=== PATIENT | male | born 1945 | race Caucasian/White ===

== ENCOUNTER 2016-11-07 23:08 | Emergency (ER) | payer OTHER ==
--- NOTE | 2016-11-07 23:58 | ED ORDER SUMMARY ---
..... Patient: KY TINOCO JR OrderSheet Formerly [facility] VisitID: [id number] [place] [address] 71y, M Registration Date/Time: 11/07/2016 ORDER SHEET Weight: 113.3 kg (stated) Allergies: No Known Drug Allergy GENERAL ORDERS: UA-Culture if indicated Urgent (23:21 11/07/2016 Nic ARIAS) (Ack 23:22 JSanders R.N.) (Ack 23:22 AMcQuoid ER Tech1) (23:34 JSanders R.N.) Strauss Catheter (23:21 11/07/2016 Nic ARIAS) (Ack 23:22 JSanders R.N.) (Ack 23:22 AMcQuoid ER Tech1) (23:34 JSanders R.N.) - (d/c Strauss) (23:55 11/07/2016 Nic ARIAS) (0:06 HSoule) MEDICATION ORDERS: IV FLUIDS: ORDER SHEET NOTES: [Electronically signed by Svetlana Guerra MD (00:19 11/08/2016)] [Electronically signed by Darling West R.N. (01:56 11/08/2016)] [Electronically locked/signed by Darling West R.N. (01:56 11/08/2016)]
--- NOTE | 2016-11-07 23:58 | ED CLINICAL REPORT ---
Clinical Report - Physicians/[facility] [address] [place] [address] 11/07/2016 23:10 Patient: YK TINOCO JR Time Seen: 23:21. Arrived- By private vehicle. Historian- patient. HISTORY OF PRESENT ILLNESS Chief Complaint: URINARY RETENTION. This started today and is still present. The problem is described as moderate. No penile discharge, discomfort with urination, urinary frequency, genital lesion or testicular pain. No urgency of urination, flank pain, inguinal swelling or problem with the foreskin. The patient has been unable to void (since this afternoon). He has been voiding small amounts (intermittently). Sexual history is noncontributory. Similar symptoms previously: None. Recent medical care: Not recently seen/assessed. REVIEW OF SYSTEMS No fever, chills, flank pain, hematuria or abdominal pain. No vomiting, diarrhea, black stools, bloody stools or headache. No sore throat, blurred vision, chest pain, difficulty breathing or cough. No joint pain, skin rash or back pain. All systems otherwise negative, except as recorded above. PAST HISTORY Problems: Sleep Apnea. COPD - Chronic Obstructive Pulmonary Disease. Hypertension. Additional Surgeries: Knee Surgery. Shoulder Surgery. Sinus Surgery. Medications: Statin. Lisinopril Oral (Tablet 20 mg) 1 tablet, daily. Allergies: No Known Drug Allergy. SOCIAL HISTORY Smoker- current status unknown. Alcohol use. History of drug use: marijuana. ADDITIONAL NOTES The nursing notes have been reviewed. PHYSICAL EXAM Vital Signs: 11/07/2016 23:15 BP: 219/97. HR: 70. RR: 20. O2 saturation: 98%. Temp: 98.2 F. Pain level now: 1010. Have been reviewed. Appearance: Alert. Oriented X3. No acute distress. ENT: Normal external inspection. Neck: Neck supple. CVS: Heart sounds normal. Respiratory: No respiratory distress. Breath sounds normal. Abdomen: Soft and nontender. No organomegaly. (Strauss is in place.). : Normal genitalia. Strauss catheter returning normal appearing urine (1100 cc of yellow urine). Not cloudy or bloody. Skin: Skin warm and dry. Normal skin color. No rash. Normal skin turgor. Extremities: Bilateral mild pitting edema of the lower extremities involving both ankles. Extremities exhibit normal ROM. Neuro: Oriented X 3. No motor deficit. No sensory deficit. LABS, X-RAYS, AND EKG Laboratory Tests: UA-Culture if indicated: (CARLEY: 11/07/2016 23:30) ( MsgRcvd 11/07/2016 23:51) Final results Test Result Flag Units (Reference) URINE COLOR YELLOW URINE APPEARANCE CLEAR URINE GLUCOSE NEGATIVE (NEGATIVE) URINE BILIRUBIN NEGATIVE (NEGATIVE) URINE KETONE NEGATIVE (NEGATIVE) URINE SPECIFIC GRAVITY 1.015 (1.010-1.030) URINE PH 6.0 (5.0-8.0) URINE PROTEIN NEGATIVE (NEGATIVE) URINE UROBILINOGEN 0.2 EU/dL (0.2-1.0) URINE NITRITE NEGATIVE (NEGATIVE) URINE BLOOD 1+ (NEGATIVE) URINE LEUK ESTERASE NEGATIVE (NEGATIVE) URINE RBC 1-3 rbc/hpf (0-1) URINE WBC 0-1 wbc/hpf (0-1) URINE EPITHELIAL CELLS NONE SEEN EPI/hpf (0-5) URINE BACTERIA NONE SEEN (NONE SEEN) URINE COMMENT CULT NOT INDICATED RARE TRANSITIONAL EPITHELIAL CELLURINE CULTURES ARE SET-UP BASED ON THE FOLLOWING CRITERIA:POSITIVE NITRITEPOSITIVE LEUKOCYTE ESTERASEGREATER THAN 10 WHITE BLOOD CELLSMODERATE (2+) OR GREATER BACTERIA . Pulse Oximetry: 11/07/2016 23:15 O2 saturation: 98%. (FIO2 - room air). Interpretation: normal. PROGRESS AND PROCEDURES Course of Care: bladder scan demonstrated the patient had 840 cc of urine in his bladder. However when the Strauss catheter was placed 1100 cc of yellow urine was obtained by my observation. Patient was found to be feeling much better after placement of the Strauss catheter. Urinalysis was unremarkable, and I did discuss with the patient and his that most likely, based on the patient's symptoms, he has prostatic hypertrophy Patient is unaware of his doctor ever having discussed this with him; however he states he has had PSAs checked in the past and that they have all been low. I did discuss with the patient the option of leaving the catheter in for a couple of days with a leg bag and then having his primary care physician remove it, versus the option of having the catheter removed here in the ED and see if he is able to urinate normally at home. Patient opted for the latter. Patient and spouse counseled in person regarding the patient's stable condition, test results, diagnosis and need for follow-up. Concerns were addressed. Old medical records reviewed. Disposition: Discharged. Condition: stable and improved. CLINICAL IMPRESSION Urinary retention with enlarged prostate. INSTRUCTIONS Drink plenty of fluids. (Your urinalysis looks good. Based on your history and symptoms, it is likely that you have an enlarged prostate gland, which is causing outflow restriction from your bladder. Please see your doctor for a recheck of this and your PSA. If you have further problems with urinary retention, we can put a catheter in again, and leave it in for a couple of days, after which you can follow up with a urologist.). Warnings: Further evaluation is necessary. It is very important to follow up with a physician. GENERAL WARNINGS: Return or contact your physician immediately if your condition worsens or changes unexpectedly, if not improving as expected, or if other problems arise. Your Current Medications: CONTINUE TAKING THE FOLLOWING MEDICATIONS: Lisinopril Oral : Tablet 20 mg, 1 tablet daily. Statin*. Follow-up: Follow up with your doctor. Call for the next available appointment. Reason for referral: Follow up ER visit for urinary retention. Understanding of the discharge instructions verbalized by patient and family. (Electronically signed by Svetlana Guerra MD 11/08/2016 0:19)
--- NOTE | 2016-11-07 23:58 | ED NURSING NOTES ---
Clinical Report - Nurses [facility] [address] [place] [address] 11/07/2016 23:10 Patient: KY TINOCO JR TRIAGE Triage time 23:Nov 07 2016. Acuity: LEVEL 3. Chief Complaint: URINARY RETENTION. 23:21 11/07/16. SEPSIS SCREEN: Sepsis Screen. Negative (no infection suspected/documented). YUNG COMA SCORE: Yung Coma Scale: 15- eyes open spontaneously (4); best verbal response- oriented x 4 (5); best motor response- obeys commands (6). --23:21 Darling West R.N. 23:15 11/07/16. BP: 219/97 (large adult cuff) taken on the left arm. HR: 70. RR: 20. O2 saturation: 98% on room air. Temp: 98.2 F. Pain level now: 04/12. Additional comments: in bladder. --23:21 Darling West R.N. Weight: 113.3 kg stated. Height/Length: 71 inches Per Patient. BMI: 34.9. --23:19 Darling West R.N. Medications Lisinopril Oral (Tablet 20 mg) 1 tablet, daily. --23:16 Darling West R.N. Statin. --23:16 Darling West R.N. Allergies No Known Drug Allergy. --23:17 Darling West R.N. History Arrived by private vehicle. Historian: patient. Accompanied by family. This started just prior to arrival. Onset. (Hasnt urinated for a few hours). ( 842 in bladder). He has been unable to void. 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 SOCIAL HX: Smoker- current status unknown. Occasional alcohol use. History of occasional drug use: marijuana. No infectious disease exposure. ABUSE ASSESSMENT: No report of abuse. --23:21 Darling West R.N. PROBLEMS: Sleep Apnea. COPD - Chronic Obstructive Pulmonary Disease. Hypertension. --23:18 Darling West R.N. Urinary Retention [RuleOut]. --23:58 Svetlana Guerra MD The following entry was modified by Svetlana Guerra MD, 23:58 <<STRICKEN ENTRY-- Urinary Retention. --23:17 Darling West R.N. --END STRIKE>>. ADDITIONAL SURGERIES: Knee Surgery. Shoulder Surgery. Sinus Surgery. --23:18 Darling West R.N. Interventions ID band on patient. To treatment room. --23:21 Darling West R.N. PHYSICAL ASSESSMENT 23:21 11/07/16. Ambulatory to room. Patient gowned. GENERAL / NEURO / PSYCH: Alert. Oriented X 4. HEENT: Mucous membranes are pink. RESPIRATORY: Respirations not labored. Breath sounds within normal limits. CVS: Normal heart rate and rhythm. Capillary refill less than 2 seconds. GI / : Abdominal distention. Abdomen soft. Abdominal tenderness. Bowel sounds within normal limits. SKIN: Skin is warm. --23:21 Darling West R.N. NURSING PROGRESS NOTES 23:11/07/16. The plan of care for this patient has been created. Monitoring of patient in place. Patient gowned. Head of bed elevated. Reassurance given. Two patient identifiers checked. Call light placed in reach. Side rails up x 2. Bed placed in lowest position. Brakes of bed on. Patient ready for evaluation- chart flagged and ED physician notified. --23:22 Darling West R.N. 23:28 11/07/16. ( Patients at bedside). --23:28 Darling West R.N. 23:30 11/07/16. --23:30 Darling West R.N. 23:28 11/07/16. BP: 147/59 (regular adult cuff) taken on the left arm. HR: 58. RR: 18. O2 saturation: 100% on room air. Pain level now: 0/10. --23:30 Darling West R.N. 23:30. 16 fr coude catheter placed. Reason for indwelling catheter: retention. During procedure hand hygiene observed and sterile equipment and aseptic technique used. Return of greater than 1000 mL yellow-colored cloudy urine; attached to bedside drainage bag positioned below the bladder. He tolerated procedure well. --23:45 Manuel Hagen R.N. 23:55 11/07/16. ( Patient feeling much better, no longer sweating and no more pain noted.). --23:55 Darling West R.N. 23:54 11/07/16. BP: 128/110 (regular adult cuff) taken on the left arm. HR: 55. RR: 18. O2 saturation: 94% on room air. Pain level now: 0/10. --23:55 Darling West R.N. DISPOSITION / DISCHARGE 00:15 11/08/16. BP: 141/65 (regular adult cuff) taken on the left arm. HR: 60. RR: 18. O2 saturation: 94% on room air. Temp: 97.6 F (oral). Pain level now: 0/10. --00:17 Darling West R.N. late entry - 00:17 11/08/16. Departure time: 16Nov 08 2016. --01:55 Darling West R.N. 00:17 11/08/16. Condition at departure: improved. No learning barriers present. Discharge instructions provided and reviewed with the patient. Reviewed medication(s). Patient verbalized understanding. Written instructions provided in [place]. The patient was discharged by the physician. He was discharged home and accompanied by spouse. He left the Emergency Department ambulatory and via private vehicle. Spouse driving. --00:17 Darling West R.N. Locked/Released at 11/08/2016 1:56 by Darling West R.N.
--- NOTE | 2016-11-07 23:58 | ED ORDER SUMMARY ---
..... Patient: KY TINOCO JR OrderSheet [facility] VisitID: [id number] [place] [address] 71y, M Registration Date/Time: 11/07/2016 ORDER SHEET Weight: 113.3 kg (stated) Allergies: No Known Drug Allergy GENERAL ORDERS: UA-Culture if indicated Urgent (23:21 11/07/2016 Nic ARIAS) (Ack 23:22 JSanders R.N.) (Ack 23:22 AMcQuoid ER Tech1) (23:34 JSanders R.N.) Strauss Catheter (23:21 11/07/2016 Nic ARIAS) (Ack 23:22 JSanders R.N.) (Ack 23:22 AMcQuoid ER Tech1) (23:34 JSanders R.N.) - (d/c Strauss) (23:55 11/07/2016 Nic ARIAS) (0:06 HSoule) MEDICATION ORDERS: IV FLUIDS: ORDER SHEET NOTES: [Electronically signed by Svetlana Guerra MD (00:19 11/08/2016)] [Electronically signed by Darling West R.N. (01:56 11/08/2016)] [Electronically locked/signed by Darling West R.N. (01:56 11/08/2016)]
--- NOTE | 2016-11-07 23:58 | ED NURSING NOTES ---
Clinical Report - Nurses [facility] [address] [place] [address] 11/07/2016 23:10 Patient: KY TINOCO JR TRIAGE Triage time 23:Nov 07 2016. Acuity: LEVEL 3. Chief Complaint: URINARY RETENTION. 23:21 11/07/16. SEPSIS SCREEN: Sepsis Screen. Negative (no infection suspected/documented). YUNG COMA SCORE: Yung Coma Scale: 15- eyes open spontaneously (4); best verbal response- oriented x 4 (5); best motor response- obeys commands (6). --23:21 Darling West R.N. 23:15 11/07/16. BP: 219/97 (large adult cuff) taken on the left arm. HR: 70. RR: 20. O2 saturation: 98% on room air. Temp: 98.2 F. Pain level now: 04/12. Additional comments: in bladder. --23:21 Darling West R.N. Weight: 113.3 kg stated. Height/Length: 71 inches Per Patient. BMI: 34.9. --23:19 Darling West R.N. Medications Lisinopril Oral (Tablet 20 mg) 1 tablet, daily. --23:16 Darling West R.N. Statin. --23:16 Darling West R.N. Allergies No Known Drug Allergy. --23:17 Darling West R.N. History Arrived by private vehicle. Historian: patient. Accompanied by family. This started just prior to arrival. Onset. (Hasnt urinated for a few hours). ( 842 in bladder). He has been unable to void. 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 SOCIAL HX: Smoker- current status unknown. Occasional alcohol use. History of occasional drug use: marijuana. No infectious disease exposure. ABUSE ASSESSMENT: No report of abuse. --23:21 Darling West R.N. PROBLEMS: Sleep Apnea. COPD - Chronic Obstructive Pulmonary Disease. Hypertension. --23:18 Darling West R.N. Urinary Retention [RuleOut]. --23:58 Svetlana Guerra MD The following entry was modified by Svetlana Guerra MD, 23:58 <<STRICKEN ENTRY-- Urinary Retention. --23:17 Darling West R.N. --END STRIKE>>. ADDITIONAL SURGERIES: Knee Surgery. Shoulder Surgery. Sinus Surgery. --23:18 Darling West R.N. Interventions ID band on patient. To treatment room. --23:21 Darling West R.N. PHYSICAL ASSESSMENT 23:21 11/07/16. Ambulatory to room. Patient gowned. GENERAL / NEURO / PSYCH: Alert. Oriented X 4. HEENT: Mucous membranes are pink. RESPIRATORY: Respirations not labored. Breath sounds within normal limits. CVS: Normal heart rate and rhythm. Capillary refill less than 2 seconds. GI / : Abdominal distention. Abdomen soft. Abdominal tenderness. Bowel sounds within normal limits. SKIN: Skin is warm. --23:21 Darling West R.N. NURSING PROGRESS NOTES 23:11/07/16. The plan of care for this patient has been created. Monitoring of patient in place. Patient gowned. Head of bed elevated. Reassurance given. Two patient identifiers checked. Call light placed in reach. Side rails up x 2. Bed placed in lowest position. Brakes of bed on. Patient ready for evaluation- chart flagged and ED physician notified. --23:22 Darling West R.N. 23:28 11/07/16. ( Patients at bedside). --23:28 Darling West R.N. 23:30 11/07/16. --23:30 Darling West R.N. 23:28 11/07/16. BP: 147/59 (regular adult cuff) taken on the left arm. HR: 58. RR: 18. O2 saturation: 100% on room air. Pain level now: 0/10. --23:30 Darling West R.N. 23:30. 16 fr coude catheter placed. Reason for indwelling catheter: retention. During procedure hand hygiene observed and sterile equipment and aseptic technique used. Return of greater than 1000 mL yellow-colored cloudy urine; attached to bedside drainage bag positioned below the bladder. He tolerated procedure well. --23:45 Manuel Hagen R.N. 23:55 11/07/16. ( Patient feeling much better, no longer sweating and no more pain noted.). --23:55 Darling West R.N. 23:54 11/07/16. BP: 128/110 (regular adult cuff) taken on the left arm. HR: 55. RR: 18. O2 saturation: 94% on room air. Pain level now: 0/10. --23:55 Darling West R.N. DISPOSITION / DISCHARGE 00:15 11/08/16. BP: 141/65 (regular adult cuff) taken on the left arm. HR: 60. RR: 18. O2 saturation: 94% on room air. Temp: 97.6 F (oral). Pain level now: 0/10. --00:17 Darling West R.N. late entry - 00:17 11/08/16. Departure time: 16Nov 08 2016. --01:55 Darling West R.N. 00:17 11/08/16. Condition at departure: improved. No learning barriers present. Discharge instructions provided and reviewed with the patient. Reviewed medication(s). Patient verbalized understanding. Written instructions provided in South [place]ese. The patient was discharged by the physician. He was discharged home and accompanied by spouse. He left the Emergency Department ambulatory and via private vehicle. Spouse driving. --00:17 Darling West R.N. Locked/Released at 11/08/2016 1:56 by Darling West R.N.
--- NOTE | 2016-11-08 01:56 | ED MED RECONCILIATION SUMMARY ---
Patient: KY TINOCO Medication Reconciliation Report [facility] VisitID: [id number] [address] [place] [address] 71y, M Registration Date/Time: 11/07/2016 Weight: 113.3 kg Height/Length: 71 in. BMI: 34.9 ALLERGIES: No Known Drug Allergy The patient's Home Medications are listed below: CONTINUE TAKING THE FOLLOWING MEDICATIONS: Lisinopril Oral (20 mg) 1 tablet, daily Statin The source(s) of the original Home Medication information: Not obtained. The following Medications were given to the patient in the Emergency Department: None. The following Medications were prescribed to the patient: None.
--- NOTE | 2016-11-08 01:56 | ED DISCHARGE INSTRUCTIONS ---
Patient: KY TINOCO JR General Instructions [facility] VisitID: [id number] [place] [address] 71y, M Registration Date/Time: 11/07/2016 Urinary retention with enlarged prostate. INSTRUCTIONS Drink plenty of fluids. (Your urinalysis looks good. Based on your history and symptoms, it is likely that you have an enlarged prostate gland, which is causing outflow restriction from your bladder. Please see your doctor for a recheck of this and your PSA. If you have further problems with urinary retention, we can put a catheter in again, and leave it in for a couple of days, after which you can follow up with a urologist.). Warnings: Further evaluation is necessary. It is very important to follow up with a physician. GENERAL WARNINGS: Return or contact your physician immediately if your condition worsens or changes unexpectedly, if not improving as expected, or if other problems arise. Your Current Medications: CONTINUE TAKING THE FOLLOWING MEDICATIONS: Lisinopril Oral : Tablet 20 mg, 1 tablet daily. Statin*. Follow-up: Follow up with your doctor. Call for the next available appointment. Reason for referral: Follow up ER visit for urinary retention. Understanding of the discharge instructions verbalized by patient and family. ADDITIONAL INFORMATION Urinary Retention (Male) Urinary retention means that you are unable to pass urine, even though your bladder is full. The most common cause for this in males is a blockage of the bladder outlet by an enlarged prostate gland or a bladder infection. Certain medicines can also cause this problem. This condition is treated by insertion of a catheter into the bladder to drain the urine. This provides immediate relief. The catheter may need to remain in place for a few days to prevent a recurrence. The catheter has a balloon on the tip which was inflated after insertion. This prevents the catheter from falling out. Home Care: If an antibiotic was prescribed to treat a bladder infection, be sure to take it until finished, even if you are feeling better before it is all gone. If a catheter was left in place, it is important to keep bacteria from getting into the collection bag. Do not disconnect the catheter from the collection bag. Use a leg band to secure the drainage tube, so it does not pull on the catheter. Drain the collection bag when it becomes full using the drain spout at the bottom of the bag. Do not try to pull or remove your catheter. This will injure your urethra. It must be removed by a doctor or nurse. Follow Up with your doctor as advised. If a catheter was left in place, it can usually be removed within 3-7 days. Some conditions require that the catheter remains in longer. Follow up with your doctor to determine the right time for you. Get Prompt Medical Attention if any of the following occur: Fever of 100.4F (38C) or higher, or as directed by your healthcare provider Bladder or lower abdominal pain or fullness Abdominal swelling, nausea, vomiting or back pain Blood or urine leakage around the catheter Bloody urine coming from the catheter (if a new symptom) Weakness, dizziness or fainting Confusion or change in usual level of alertness If a catheter was left in place, return if: Catheter falls out Catheter stops draining for 6 hours You have been given the following additional information: Urinary Retention, Male (Electronically signed by Svetlana Guerra MD 11/08/2016 0:19)
--- NOTE | 2016-11-08 01:56 | ED MED RECONCILIATION SUMMARY ---
Patient: YK TINOCO Medication Reconciliation Report [facility] VisitID: [id number] [address] [place] [address] 71y, M Registration Date/Time: 11/07/2016 Weight: 113.3 kg Height/Length: 71 in. BMI: 34.9 ALLERGIES: No Known Drug Allergy The patient's Home Medications are listed below: CONTINUE TAKING THE FOLLOWING MEDICATIONS: Lisinopril Oral (20 mg) 1 tablet, daily Statin The source(s) of the original Home Medication information: Not obtained. The following Medications were given to the patient in the Emergency Department: None. The following Medications were prescribed to the patient: None.
--- NOTE | 2016-11-08 01:56 | ED MAR SUMMARY ---
..... Medication Administration Record [facility] [address], [place] [id number] Patient: KY TINOCO Visit ID: [id number] 71y, M Weight: 113.3 kg Height/Length: 71 in BMI: 34.9 ALLERGIES: No Known Drug Allergy
--- NOTE | 2016-11-08 01:56 | ED MAR SUMMARY ---
..... Medication Administration Record [facility] [address] [id number] Patient: KY TINOCO Visit ID: [id number] 71y, M Weight: 113.3 kg Height/Length: 71 in BMI: 34.9 ALLERGIES: No Known Drug Allergy
== END 2016-11-08 00:21 | disposition home or self-care (01) ==
LOC: ED SRH 23:08
DX: N40.1 Benign prostatic hyperplasia with lower urinary tract symptoms (principal); I10 Essential (primary) hypertension; J44.9 Chronic obstructive pulmonary disease, unspecified; Z79.899 Other long term (current) drug therapy
CPT/HCPCS: 80264; 90004